=== PATIENT | male | born 1935 | race Caucasian/White ===

== ENCOUNTER 2016-05-28 21:17 | Emergency (ER) | payer MEDICARE, OTHER ==
[2016-05-28 21:25] VITALS: BP 122/70; PULSE 67; RESP 20; O2SAT 93
--- NOTE | 2016-05-28 21:46 | ED.REPORT ---
HPI-Extremity Problem Lower Date of Service May 28, 2016 ED Provider: Missael Medina DO Pt is a 81 year old male who presents to the ED with complaints of left foot pain that started immediately prior to arrival. He reports that he was at home when he stubbed his foot on a piece of furniture. He denies any other complaints. Nursing Notes Stated Complaint: LEFT FT, TOE PAIN Chief Complaint: Extremity Trauma Nursing Notes Reviewed: Yes Allergies: Coded Allergies: ibuprofen (Verified Allergy, Severe, swelling, 05/28/16) General Time Seen by MD: 21:45 Chief Complaint Foot injury left Hx Obtained From: Patient Arrived By: Walk-in Onset Occurred: Just prior to arrival Symptom Duration: Since onset Caused by: Accidental Location: : Toe left 4: Toe left 5 Quality: Painful Severity: Current: Moderate Severity: Maximum: Moderate Similar Sx Previous: Yes Past Medical History Ambulatory Status Independent Review of Systems Constitutional: Denies: Chills, Fever, Malaise, Weakness - generalized Musculoskeletal: Reports: Extremity pain, Denies: Back pain, Neck pain Skin: Denies Diaphoresis Neurologic: Denies: Change LOC, Dizziness, Headache, Syncope Complete sys rev & neg: except as marked. Physical Exam Initial Vital Signs Vital Signs (First) Date Time Temp Pulse Resp B/P Pulse Ox O2 Delivery O2 Flow Rate FiO2 05/28/16 21:25 36.6 67 20 122/70 93 Room Air Initial VS: Reviewed General/Constitutional: Well-developed, Well-nourished Head / Eyes: Atraumatic, Normocephalic, PERRL ENT: Mucous membranes moist, Conjunctiva normal, No scleral icterus Neck: Supple, Non-tender, Full range of motion Skin: Warm, Dry, No cyanosis Neurologic: Alert, Oriented, Nonfocal Psychiatric: Mood/affect normal, Behavior normal, Normal thought content Lower Extremity / Pelvis / MS: Atraumatic, Inspection NL, No swelling Ankle / Foot: Atraumatic, Inspection NL, No swelling Left foot tenderness about proximal 4th and 5th phalanx Interpretation & Diagnostics X-Ray Interpretation Xray Interpretation: IMPRESSION: Fracture involving the fourth toe. Possible fracture involving the fifth toe. Dictated by: Albaro Frank M.D. on 05/28/2016 at 22:06 X-Ray Ordered: Foot left Interpretation / Wet Read by: Interpret - Radiologist Re-Eval/Medical Decision Source of Hx: Old records Re-Evaluation/Progress : Time of Eval: 22:44 Re-Evaluation/Progress Note: Pt is rechecked and informed of his imaging results and the plan to discharge him at this time. He understands and agrees, all questions are addressed. Counseled Regarding: Diagnosis, Lab results, Need for follow-up, When/why to return to ED Discharge & Departure Impression: Primary Impression: Toe fracture Encounter type: initial encounter Toe: lesser toe Fracture type: closed Phalanx: proximal Fracture alignment: nondisplaced Laterality: left Qualified Code: S92.515A - Nondisplaced fracture of proximal phalanx of left lesser toe(s), initial encounter for closed fracture Disposition: Home Discharge Condition All VS Reviewed: Yes Condition: Stable Patient Instructions: Toe Fracture (ED) Additional Instructions: It appears that you have broken your fourth and fifth toe. Keep these toes susan taped together and wear the brace provided to you until you are able to follow up with the orthopedic doctor. Take ibuprofen to alleviate your pain. Return to the emergency department with any new or worsening symptoms. Referrals: Francisco Delaney MD (PCP/Family) Guillermo Conner MD Attestation Portions of this note were transcribed by Kimberley Baker. I, Dr. Medina personally performed the history, physical exam and medical decision-making; I reviewed and confirmed the accuracy of the information in the transcribed note. Signed by: Xavier Mcbride, 05/28/2016 22:38 copies to: Francisco Delaney MD; Guillermo Conner MD, Todd P DO May 28, 2016 21:46 JEB BAKER May 28, 2016 22:38
--- NOTE | 2016-05-28 22:10 | DRSVH ---
PROCEDURE: X-RAY LEFT FOOT COMPLETE, MINIMUM THREE VIEWS ([id number]) INDICATIONS: ran into bed post. TECHNIQUE: 3 views of the foot were acquired. COMPARISON: None. FINDINGS: Bones: There is an acute fracture involving the midshaft of the proximal phalanx of the fourth toe. T here is very slight lateral angulation of the distal fragment. There is also thought to be a parasagi ttal fracture involving the distal articular surface and medial condyle of the proximal phalanx of th e fifth toe. This is not definite. There is no displacement. Soft tissues: No tibiotalar joint effusion. Achilles tendon appears normal. IMPRESSION: Fracture involving the fourth toe. Possible fracture involving the fifth toe. Dictated by: Albaro Frank M.D. on 05/28/2016 at 22:06 Approved by: Albaro Frank M.D. on 05/28/2016 at 22:08
== END 2016-05-28 23:05 | disposition home or self-care (01) ==
LOC: SED 21:42
DX: S92.502A Displaced unspecified fracture of left lesser toe(s), initial encounter for closed fracture (principal); W22.03XA Walked into furniture, initial encounter; Y93.89 Activity, other specified; Y92.019 Unspecified place in single-family (private) house as the place of occurrence of the external cause; Y99.8 Other external cause status; Z88.8 Allergy status to other drugs, medicaments and biological substances